=== PATIENT | female | born 1965 | race Caucasian/White ===

== ENCOUNTER 2022-09-04 16:34 | Emergency (ER) | payer MEDICAID, SELFPAY ==
[~2022-09-04] VITALS: Ht 162.6 cm; Wt 79.0 kg
[2022-09-04 16:35] VITALS: BP 135/63
== END 2022-09-04 17:34 | disposition left against medical advice (07) ==
LOC: M ED 16:34
DX: Z53.21 Procedure and treatment not carried out due to patient leaving prior to being seen by health care provider (principal)

== ENCOUNTER 2022-11-27 07:44 | Emergency (ER) | payer MEDICAID, OTHER, SELFPAY ==
[~2022-11-27] VITALS: Ht 162.6 cm; Wt 81.8 kg
[2022-11-27] MEDS ORDERED: CETI10CH PO (08:22)
[2022-11-27] MEDS ORDERED: FLUT1BLS3 IH (08:22)
[2022-11-27] MEDS ORDERED: LANTINJ4 SC (08:22)
[2022-11-27] MEDS ORDERED: GABA600T4 PO (08:22)
[2022-11-27] MEDS ORDERED: ATOR80TA59 PO (08:22)
[2022-11-27] MEDS ORDERED: ASPI81CH33 PO (08:22)
[2022-11-27] MEDS ORDERED: ALBU6.7H6 INH (08:22)
[2022-11-27] MEDS ORDERED: METO25TA4 PO (08:27)
[2022-11-27] MEDS ORDERED: CLOP75TA99 PO (08:27)
[2022-11-27] MEDS ORDERED: TRAM50TA2 PO (08:27)
[2022-11-27] MEDS ORDERED: JARD1TAB3 PO (08:27)
[2022-11-27] MEDS ORDERED: METF500T13 PO (08:27)
[2022-11-27] MEDS ORDERED: FLUO-96 PO (08:27)
[2022-11-27] MEDS ORDERED: GLIP10TA PO (08:27)
[2022-11-27] MEDS ORDERED: FAMO20TA PO (08:27)
[2022-11-27 11:05] VITALS: BP 145/66
[2022-11-27] MEDS ORDERED: IPRATROPIUM 0.5MG/ALBUTEROL 2.5MG INH SOL UD 3ML (DUONEB) NEB ONE (11:25)
[2022-11-27] MEDS ORDERED: LIDOCAINE 5% (LIDODERM) PATCH TD ONE (11:35)
[2022-11-27] MEDS ORDERED: ACETAMINOPHEN 325 MG TAB PO ONE (11:35)
[2022-11-27] MEDS ORDERED: methocarbamoL 500 MG TAB PO ONE (11:35)
[2022-11-27 12:15] LABS: BASO # 0.1 10^3/uL (0.0-0.2); BASO % 0.5 % (0.0-1.0); EOS % 0.1 % (0.0-3.0); HEMATOCRIT 40.9 % (36.0-47.0); HEMOGLOBIN 13.5 g/dl (12.0-15.5); LYMPH # 1.1 10^3/uL (1.5-5.0); LYMPH % 8.5 % (24.0-44.0); MEAN CORPUSCULAR HEMOGLOBIN 30.6 pg (27.0-33.0); MEAN CORPUSCULAR VOLUME 92.7 fl (80.0-96.0); MONO # 1.2 10^3/uL (0.0-0.8); MONO % 9.7 % (2.0-8.0); NEUTROPHILS % 80.7 % (36.0-66.0); PLATELET COUNT, AUTOMATED 278 10^3/uL (150-450); RED BLOOD COUNT 4.41 10^6/uL (4.00-5.40); WHITE BLOOD COUNT 12.4 10^3/uL (4.0-10.0)
[2022-11-27 12:34] LABS: ERYTHROCYTE SEDIMENTATION RATE 127 mm/hr (0-30)
[2022-11-27 12:36] LABS: ALBUMIN 2.6 G/DL (3.2-5.2); ALKALINE PHOSPHATASE 129 U/L (46-116); ALT/SGPT 9 U/L (7.0-40); AST/SGOT 16 U/L (<34); BILIRUBIN,DIRECT 0.4 MG/DL (<0.4); BILIRUBIN,TOTAL 0.8 MG/DL (0.3-1.2); BLOOD UREA NITROGEN 13 MG/DL (9-23); CALCIUM LEVEL 8.9 MG/DL (8.5-10.1); CARBON DIOXIDE LEVEL 20 MMOL/L (20-31); CHLORIDE LEVEL 102 MMOL/L (98-107); CK-MB VALUE MASS < 1.0 NG/ML (<3.6); CREATININE FOR GFR 0.54 MG/DL (0.55-1.30); GLOMERULAR FILTRATION RATE > 60.0 (>51); GLUCOSE, FASTING 163 MG/DL (60-100); POTASSIUM SERUM 3.7 MMOL/L (3.5-5.1); SODIUM LEVEL 137 MMOL/L (136-145); TOTAL PROTEIN 6.6 G/DL (5.7-8.2)
[2022-11-27 12:37] LABS: CPK CREATINE PHOSPHOKINASE 80 U/L (34-145); MB/CK RELATIVE INDEX 1.25 (< OR =4)
[2022-11-27 12:42] LABS: URIC ACID 4.6 MG/DL (3.1-7.8)
[2022-11-27] MEDS ORDERED: LIDO5DIS41 TOP (15:37)
== END 2022-11-27 17:07 | disposition home or self-care (01) ==
LOC: M ED 07:44 → EDBD 07:44 → M ED 17:07
DX: M75.31 Calcific tendinitis of right shoulder (principal); M54.31 Sciatica, right side; R06.2 Wheezing; R94.31 Abnormal electrocardiogram [ECG] [EKG]; R70.0 Elevated erythrocyte sedimentation rate; R79.82 Elevated C-reactive protein (CRP); M19.041 Primary osteoarthritis, right hand; R60.9 Edema, unspecified; G89.29 Other chronic pain; E11.9 Type 2 diabetes mellitus without complications; Z86.73 Personal history of transient ischemic attack (TIA), and cerebral infarction without residual deficits; J44.9 Chronic obstructive pulmonary disease, unspecified; E78.5 Hyperlipidemia, unspecified; Z95.5 Presence of coronary angioplasty implant and graft; Z90.49 Acquired absence of other specified parts of digestive tract; F17.200 Nicotine dependence, unspecified, uncomplicated; Z88.1 Allergy status to other antibiotic agents; Z79.51 Long term (current) use of inhaled steroids; Z79.84 Long term (current) use of oral hypoglycemic drugs; Z79.4 Long term (current) use of insulin; Z79.899 Other long term (current) drug therapy

== ENCOUNTER 2023-02-07 12:22 | Emergency (ER) | payer OTHER ==
[~2023-02-07] VITALS: Ht 160 cm; Wt 86.4 kg
[~2023-02-07 12:22] MED LIST: ALBU6.7H6 INH; ASPI81CH33 PO; ATOR80TA59 PO; CETI10CH PO; CLOP75TA99 PO; FAMO20TA PO; FLUO-96 PO; FLUT1BLS3 IH; GABA600T4 PO; GLIP10TA PO; JARD1TAB3 PO; LANTINJ4 SC; LIDO5DIS41 TOP; METF500T13 PO; METO25TA4 PO; TRAM50TA2 PO
[2023-02-07] MEDS ORDERED: traMADol 50 MG TAB PO ONE (13:15)
[2023-02-07] MEDS ORDERED: GABAPENTIN 300 MG CAP PO ONE (13:15)
[2023-02-07] MEDS ORDERED: NS 1,000 ML IV ONE (13:20)
[2023-02-07 13:52] LABS: BASO # 0.1 10^3/uL (0.0-0.2); BASO % 0.6 % (0.0-1.0); EOS % 0.2 % (0.0-3.0); HEMATOCRIT 49.8 % (36.0-47.0); HEMOGLOBIN 16.1 g/dl (12.0-15.5); LYMPH # 1.8 10^3/uL (1.5-5.0); LYMPH % 12.8 % (24.0-44.0); MEAN CORPUSCULAR HEMOGLOBIN 31.5 pg (27.0-33.0); MEAN CORPUSCULAR HGB CONC 32.3 g/dl (32.0-36.5); MEAN CORPUSCULAR VOLUME 97.5 fl (80.0-96.0); MONO % 12.1 % (2.0-8.0); NEUTROPHILS # 10.4 10^3/uL (1.5-8.5); NEUTROPHILS % 73.8 % (36.0-66.0); PLATELET COUNT, AUTOMATED 223 10^3/uL (150-450); RED BLOOD COUNT 5.11 10^6/uL (4.00-5.40); WHITE BLOOD COUNT 14.1 10^3/uL (4.0-10.0)
[2023-02-07 14:15] LABS: MONO # 1.7 10^3/uL (0.0-0.8)
[2023-02-07 14:18] LABS: LIPASE 18 U/L (12-53)
[2023-02-07 14:21] LABS: ALBUMIN 3.3 G/DL (3.2-5.2); ALKALINE PHOSPHATASE 121 U/L (46-116); ALT/SGPT 16 U/L (7.0-40); AST/SGOT 18 U/L (<34); BILIRUBIN,DIRECT 0.7 MG/DL (<0.4); BILIRUBIN,TOTAL 2.2 MG/DL (0.3-1.2); BLOOD UREA NITROGEN 19 MG/DL (9-23); CALCIUM LEVEL 9.2 MG/DL (8.5-10.1); CARBON DIOXIDE LEVEL 23 MMOL/L (20-31); CHLORIDE LEVEL 99 MMOL/L (98-107); GLOMERULAR FILTRATION RATE > 60.0 (>51); GLUCOSE, FASTING 190 MG/DL (60-100); POTASSIUM SERUM 4.7 MMOL/L (3.5-5.1); SODIUM LEVEL 134 MMOL/L (136-145); TOTAL PROTEIN 7.3 G/DL (5.7-8.2)
[2023-02-07 14:23] LABS: RSV AMPLIFICATION NEGATIVE (NEGATIVE)
[2023-02-07] MEDS ORDERED: TRAM50TA2 PO (15:45)
[2023-02-07] MEDS ORDERED: NEUR300C PO (15:45)
[2023-02-07 16:27] VITALS: BP 142/84
== END 2023-02-07 16:58 | disposition home or self-care (01) ==
LOC: M ED 12:22 → EDBD 12:22 → M ED 16:58
DX: M54.32 Sciatica, left side (principal); Z95.5 Presence of coronary angioplasty implant and graft; Z86.73 Personal history of transient ischemic attack (TIA), and cerebral infarction without residual deficits; F17.200 Nicotine dependence, unspecified, uncomplicated; Z88.1 Allergy status to other antibiotic agents; Z79.899 Other long term (current) drug therapy; Z79.4 Long term (current) use of insulin; E11.9 Type 2 diabetes mellitus without complications

== ENCOUNTER → 2025-01-22 | Outpatient (CLI) | payer OTHER ==
[~2025-01-22] MED LIST changes: +GABA-1490 PO; -GABA600T4 PO; +NEUR300C PO
== END ==
LOC: M RAD 10:53
PROVIDERS: ATTEND Nurse Practitioner Family
DX: H53.139 Sudden visual loss, unspecified eye (principal)

== ENCOUNTER → 2025-02-12 | Outpatient (CLI) | payer OTHER | LOC: M WHC 09:22 | PROVIDERS: ATTEND Family Medicine | DX: Z12.31 Encounter for screening mammogram for malignant neoplasm of breast (principal) ==